=== PATIENT | male | born 1975 | race Caucasian/White ===

== ENCOUNTER 2019-03-13 15:01 | Emergency (ER) | payer OTHER, SELFPAY ==
[2019-03-13 15:05] VITALS: BP 154/90; PULSE 86; RESP 16; O2SAT 98; BMI 29.0
[2019-03-13 15:10] VITALS: BP 154/90; PULSE 80; PULSE 83; RESP 18; TEMP 36.7; O2SAT 98
--- NOTE | 2019-03-13 15:14 | ED.UPPEXIN ---
HPI - Extremity Injury (Upper) General Chief Complaint: Extremity Injury, Upper Stated Complaint: rt elbow pain, swelling Time Seen by Provider: 03/13/19 15:03 Source: patient Mode of arrival: ambulatory Limitations: no limitations History of Present Illness HPI narrative: Patient is a 43-year-old male who presents right elbow pain and swelling. He says started about 1 hour ago. He has previously had swelling of his knee. So he wanted to come and get checked out right away. He denies any fever any injury. He is quite active he does [employer] exercises, rowing. All things he has done this week. He denies any falling. He is left-hand dominant. He says he work on a bike yesterday but does not remember any specific position or activity that his right arm was doing repetitively. He denies numbness or tingling. Related Data Home Medications Medication Instructions Recorded Confirmed FLUTICASONE 50MCG TIFFANY INH- 1 spray INH BID PRN #0 12/11/10 03/13/19 (FLUTICASONE PROPIONATE) Allergies Allergy/AdvReac Type Severity Reaction Status Date / Time No Known Drug Allergies Allergy Verified 03/13/19 15:05 Review of Systems Review of Systems GENERAL: Denies chills,fever HEENT: Denies throat pain RESPIRATORY: Denies dyspnea, cough, wheezing CARDIOVASCULAR: Denies chest pain, palpitations GASTROINTESTINAL: Denies nausea, vomiting MUSCULOSKELETAL: See HPI SKIN: No rash, no laceration, no pruritus NEUROLOGIC: Denies weakness, dizziness, headache, numbness 8 point review of systems is negative except for those stated above and HPI [facility] Medical History Patient denies significant medical history (Acute) Social History Smoking Status: Never smoker Social History Smoking Status: Never smoker Exam Initial Vital Signs Initial Vital Signs: Vital Signs Pulse Rate 86 03/13/19 15:05 Respiratory Rate 16 03/13/19 15:05 Blood Pressure 154/90 H 03/13/19 15:05 Pulse Oximetry 98 03/13/19 15:05 GENERAL: Well-appearing, well-nourished and in no acute distress. HEENT: Head atraumatic,EOMI, pupils reactive CARDIOVASCULAR: Regular rate and rhythm without murmurs, rubs or gallops. RESPIRATORY: Breath sounds equal bilaterally, no wheezes rales or rhonchi. EXTREMITIES: Normal range of motion, no clubbing or edema. Neurovascularly intact Right olecranon very minimal swelling tenderness to touch no erythema peripheral pulses intact NEUROLOGICAL: Alert and oriented x4.Normal gait and speech. SKIN: Warm, dry, no laceration, no petechiae, no rashes or lesions. Course Vital Signs - 8 hr 03/13/19 15:05 03/13/19 15:10 Temperature 98.0 F Pulse Rate 86 83 Pulse Rate [Right Radial] 80 Respiratory Rate 16 18 Blood Pressure 154/90 H Blood Pressure [Left Arm] 154/90 H Pulse Oximetry 98 98 MDM - Extremity Injury (Upper) MDM Narrative Medical decision making narrative: At this time I see no need for imaging he denies any fall or trauma. Seems to be more of a bursitis. At this time I do not see any erythema he is afebrile I do not think cellulitis at this time. I did discuss with patient is only been going on for 1 hour and he should monitor it. Recommended elevating icing and and NSAIDS Discharge Plan Departure Patient Disposition: Home Clinical Impression: Bursitis of right elbow Qualifiers: Elbow bursitis location: olecranon bursitis Qualified Code(s): M70.21 - Olecranon bursitis, right elbow Discharge Date/Time: 03/13/19 15:38 Interventions: ED Discharge Assessment Last Done: 03/13/19 15:37 Instructions: DI for Elbow Bursitis Activity Restrictions/Additional Instructions: *You have been diagnosed with right elbow bursitis *What to do: At this time too early to tell. However may be bursitis inflammation of the joint. No sign of infection at this time. Keep arm elevated ice. Limit range of motion *Continue to take medications as directed Motrin 800 mg every 8 hours for 1 week with food *Follow up with your primary care provider in 2-3 days *Return to ER if you should have increased redness, increased pain, weakness with fingers numbness or tingling or any new, worsening or concerning symptoms Prescriptions: No Action FLUTICASONE 50MCG TIFFANY INH- (FLUTICASONE PROPIONATE) solution 1 spray INH BID PRN (Reason: Congestion) Qty: 0 RF: 0 Referrals: [facility] [Outside]
== END 2019-03-13 15:38 | disposition home or self-care (01) ==
PROVIDERS: Emergency Provider Emergency Medicine
DX: M70.21 Olecranon bursitis, right elbow (principal)
CPT/HCPCS: 99282

== ENCOUNTER 2023-02-20 11:46 | Emergency (ER) | payer OTHER, SELFPAY ==
[2023-02-20 11:50] VITALS: BP 163/92; PULSE 93; RESP 16; O2SAT 97; BMI 25.8
--- NOTE | 2023-02-20 11:53 | DI.US.S_ITS ---
PROCEDURE: US PERIPH VENOUS LOW EXTREM LT INDICATIONS: RULE OUT DVT TECHNIQUE: Real-time imaging, as well as color and pulse Doppler interrogation, were performed of the lower extremity deep veins from the inguinal ligament to the popliteal fossa. COMPARISON: None. FINDINGS: The common femoral, femoral and popliteal veins are normally compressible, and free of intraluminal thrombus. Color and pulse Doppler demonstrate normal phasic intraluminal flow. There is normal augmentation response to distal compression maneuver. IMPRESSION: Negative left lower extremity duplex venous ultrasound for DVT. Dictated by: Shemar Stewart M.D. on 02/20/2023 at 12:39 Approved by: Shemar Stewart M.D. on 02/20/2023 at 12:40
--- NOTE | 2023-02-20 12:52 | ED.EXTPRO ---
HPI - Extremity Problem <Jared Zarate PA-C - Last Filed: 02/20/23 13:05> General Chief complaint: Extremity Problem,Nontraumatic Stated complaint: sent by DR oropeza blood clot in LT leg Time Seen by Provider: 02/20/23 12:13 History of Present Illness HPI Narrative: 47-year-old male presents to the ED with 3 weeks of left leg pain. Patient states that it started in his left lower leg, has progressed up into his left thigh. Patient describes the pain as burning. Patient states that the skin felt hot and warm to touch last night. Patient denies fever, chills, chest pain, shortness of breath, abdominal pain, numbness, tingling, weakness. Patient has a distant history of thrombophlebitis about 5 years ago. Patient denies history of DVTs/PEs. Patient is not a smoker. Patient drinks 3 alcoholic beverages daily. Denies drug use. Related Data Home Medications Medication Instructions Recorded Confirmed tumeric 100 mg-shannan 150 mg-olive cap PO 04/08/22 04/29/22 50 mg-oreg 150 mg-caprylate capsule Allergies Allergy/AdvReac Type Severity Reaction Status Date / Time No Known Drug Allergies Allergy Verified 04/29/22 09:05 Review of Systems <Jared Zarate PA-C - Last Filed: 02/20/23 13:05> Review of Systems ROS Unobtainable: All systems reviewed & are unremarkable except as noted in HPI and below Constitutional Constitutional: Denies chills, Denies fatigue, Denies fever(s), Denies frequent falls, Denies lethargy and Denies weakness Eyes Eyes: Denies change in vision, Denies eye discharge, Denies irritation and Denies loss of vision ENT Ears, Nose, Mouth, and Throat: Denies change in voice, Denies dizziness, Denies neck pain, Denies sore throat and Denies throat swelling Cardiovascular Cardiovascular: Denies chest pain, Denies irregular heart rhythm, Denies lightheadedness, Denies palpitations, Denies dyspnea, Denies dyspnea on exertion and Denies orthopnea Respiratory Respiratory: Denies cough, Denies dyspnea, Denies dyspnea on exertion and Denies wheezing Gastrointestinal Gastrointestinal: Denies abdominal pain, Denies change in bowel habits, Denies diarrhea, Denies nausea and Denies vomiting Genitourinary Genitourinary: Denies hematuria, Denies flank pain, Denies urinary incontinence and Denies urinary urgency Musculoskeletal Musculoskeletal: Denies back pain, Denies muscle weakness, Denies neck pain, Denies numbness and Denies tingling Comments: Left leg pain Integumentary/Breasts Skin/Breast: Denies pruritus, Denies erythema, Denies rash and Denies wounds Neurologic Neurologic: Denies behavioral changes, Denies confusion, Denies dizziness, Denies frequent falls, Denies loss of vision, Denies numbness, Denies tingling and Denies weakness Psychiatric Psychiatric: Denies anxiety, Denies behavioral changes, Denies confusion, Denies depression, Denies homicidal ideation and Denies suicidal ideation Endocrine Endocrine: Denies fatigue, Denies flushing and Denies palpitations Hematologic/Lymphatic Hematologic/Lymphatic: Denies easy bruising Allergic/Immunologic Allergic/Immunologic: Denies urticaria, Denies throat swelling and Denies wheezing Patient History <Jared Zarate PA-C - Last Filed: 02/20/23 13:05> Medical History Patient denies significant medical history Surgical History History of placement of ear tubes Family History Father Lung cancer Grandfather Colon cancer Social History marital status: household members: spouse lives independently: Yes Smoking Status: Never smoker alcohol intake: current Smoking Status: Never smoker Substance Use Type: does not use Exam <Jared Zarate PA-C - Last Filed: 02/20/23 13:05> Narrative Exam Narrative: Const General:?cooperative, healthy appearing and comfortable [facility] Head:?normal to inspection Ears:?hearing grossly normal bilaterally Nose:?external nose normal Face and sinus:?normal facial exam and sinuses nontender Mouth:?oral mucosae normal Throat:?posterior oropharynx normal Eyes General:?appearance normal, both eyes and all related structures Neck Neck:?normal visual inspection and no lymphadenopathy noted Resp Effort & Inspection:?normal respiratory effort Auscultation:?clear to auscultation bilaterally Cardio Rate:?regular rate Rhythm:?regular rhythm Musculoskeletal No erythema, bruising, tenderness to palpation, deformities noted on exam. There is full range of motion. Strength and sensation is intact. Patient is neurovascularly intact. Neuro General:?patient alert, patient awake and patient oriented x3 Initial Vital Signs Initial Vital Signs: Vital Signs Pulse Rate 93 H 02/20/23 11:50 Respiratory Rate 16 02/20/23 11:50 Blood Pressure 163/92 H 02/20/23 11:50 Pulse Oximetry 97 02/20/23 11:50 Oxygen Delivery Method Room Air 02/20/23 11:50 <Grayson Owusu MD - Last Filed: 02/25/23 12:30> Initial Vital Signs Initial Vital Signs: Vital Signs Pulse Rate 93 H 02/20/23 11:50 Respiratory Rate 16 02/20/23 11:50 Blood Pressure 163/92 H 02/20/23 11:50 Pulse Oximetry 97 02/20/23 11:50 Oxygen Delivery Method Room Air 02/20/23 11:50 Course <Jared Zarate PA-C - Last Filed: 02/20/23 13:05> Orders Ordered: ED Orders 02/20/23 11:53 US periph venous low extrem lt Stat Vital Signs Vital signs: Vital Signs - 8 hr 02/20/23 11:50 Pulse Rate 93 H Respiratory Rate 16 Blood Pressure 163/92 H Pulse Oximetry 97 Oxygen Delivery Method Room Air <Grayson Owusu MD - Last Filed: 02/25/23 12:30> Orders Ordered: ED Orders 02/20/23 11:53 US periph venous low extrem lt Stat Vital Signs Vital signs: Vital Signs - 8 hr 02/20/23 11:50 Pulse Rate 93 H Respiratory Rate 16 Blood Pressure 163/92 H Pulse Oximetry 97 Oxygen Delivery Method Room Air MDM - Extremity (Nontraumatic) <Jared Zarate PA-C - Last Filed: 02/20/23 13:05> MDM Narrative Medical decision making narrative: 47-year-old male presents to the ED with 3 weeks of left leg pain. Patient states that it started in his left lower leg, has progressed up into his left thigh. Concern for DVT versus superficial thrombophlebitis versus other vascular causes versus musculoskeletal sprain/strain. Will obtain ultrasound left lower extremity. Will reassess. Ultrasound negative for DVT or superficial thrombophlebitis. Discussed findings with patient, recommend follow-up with PCP for further vascular/PT eval. ED return precautions discussed with patient. Patient verbalized understanding. Medical records reviewed: Yes Discharge Plan Departure Patient Disposition: Home Clinical Impression: Left leg pain Instructions: DI for Leg Pain Activity Restrictions/Additional Instructions: You were evaluated in the ED today for left leg pain. The ultrasound did not show any DVTs or thrombophlebitis. Your symptoms could likely be due to a musculoskeletal sprain/strain or due to other vascular causes. Please follow-up with your PCP for further evaluation. You may take ibuprofen 800 mg 3 times a day with food for the pain. Return to the ED if you experience chest pain, shortness of breath. Prescriptions: No Action zrmpzga-wxzy-cekny-oreg-capryl 100 mg-150 mg- 50 mg-150 mg capsule PO Referrals: Art Al MD [Primary Care Provider] - Stand Alone Forms: Patient Portal/API <Grayson Owusu MD - Last Filed: 02/25/23 12:30> Cosign ED Attending Cosignature Attestation: I was immediately available in the department for consultation. This documentation has been reviewed and I agree with assessment and plan. Supervised by Grayson Owusu MD
== END 2023-02-20 12:54 | disposition home or self-care (01) ==
PROVIDERS: Emergency Provider Student in an Organized Health Care Education/Training Program; PCP Family Medicine
DX: M79.605 Pain in left leg (principal)
CPT/HCPCS: 93971; 99283